=== PATIENT | female | born 1985 | race Caucasian/White ===

== ENCOUNTER 2017-01-24 12:14 | Emergency (ER) | payer OTHER | END 2017-01-24 15:04 | disposition home or self-care (01) | LOC: FER 12:14 | DX: M25.532 Pain in left wrist (principal); G89.29 Other chronic pain; F43.10 Post-traumatic stress disorder, unspecified; F17.210 Nicotine dependence, cigarettes, uncomplicated; Z88.8 Allergy status to other drugs, medicaments and biological substances; I51.9 Heart disease, unspecified; W19.XXXA Unspecified fall, initial encounter | CPT/HCPCS: 73110; 99283 ==

== ENCOUNTER 2022-05-22 16:33 | Day surgery (SDCO) | payer OTHER ==
[~2022-05-22] VITALS: Ht 167.6 cm; Wt 118.6 kg
[2022-05-22 17:23] LABS: BASOPHIL 0.3 % (0-2); EOSINOPHIL 0.6 % (0-5); HCT 32.3 % (37.0-47.0); HGB 10.8 g/dl (12.5-16.0); LYMPHOCYTE 46.2 % (15-48); MCH 25.4 pg (25.0-31.0); MCHC 33.4 g/dL (32.0-36.0); MONOCYTE 6.3 % (0-12); MPV 8.8 fL (6.0-9.5); NEUTROPHIL 46.3 % (41-80); NRBC 0; PLT 311 K/uL (150-400); RBC 4.25 M/uL (4.20-5.40); RDW 16.4 % (11.5-14.0); WBC 6.3 K/uL (4.0-10.5)
[2022-05-22 17:41] LABS: ALBUMIN 3.5 g/dL (3.4-5.0); BILIRUBIN - TOTAL 0.1 mg/dL (0.2-1.0); BUN/CREAT RATIO (CALC) 9.3 RATIO; CREATININE 0.54 mg/dL (0.51-0.95); GLOBULIN (CALCULATION) 3.5 g/dL; POTASSIUM 3.1 mmol/L (3.5-5.1)
[2022-05-22 17:54] LABS: BILIRUBIN NEGATIVE (NEGATIVE); BLOOD 2+ Ery/uL (NEGATIVE); CLARITY CLEAR (CLEAR); COLOR YELLOW (YELLOW); GLUCOSE (U) NORMAL (NORMAL); LEUKOCYTES NEGATIVE Leu/uL (NEGATIVE); NITRITE NEGATIVE (NEGATIVE); PROTEIN NEGATIVE (NEGATIVE); SPECIFIC GRAVITY 1.025 (1.001-1.030); UROBILINOGEN 0.2 mg/dL (0.2-1.0)
[2022-05-22 18:13] LABS: BACTERIA 1+
[2022-05-22 18:55] LABS: ECSTASY (MDMA) NEGATIVE (NEGATIVE); MARIJUANA (THC) NEGATIVE (NEGATIVE); METHADONE NEGATIVE (NEGATIVE); OPIATES NEGATIVE (NEGATIVE); OXYCODONE POSITIVE (NEGATIVE)
[2022-05-22 18:56] LABS: AMPHETAMINES NEGATIVE (NEGATIVE); BARBITURATES NEGATIVE (NEGATIVE)
[2022-05-22 19:41] LABS: BUN/CREAT RATIO (CALC) 9.4 RATIO; CREATININE 0.53 mg/dL (0.51-0.95); POTASSIUM 3.2 mmol/L (3.5-5.1)
[2022-05-22] MEDS ORDERED: MOBIC7.5 MG PO (20:06)
[2022-05-22] MEDS ORDERED: VITAMIN D325 MC1 PO (20:07)
[2022-05-22] MEDS ORDERED: B12 ACTIVE1000 MCG PO (20:12)
[2022-05-22] MEDS ORDERED: HCTZ12.5 MG PO (20:13)
[2022-05-22] MEDS ORDERED: TRILEPTAL150 MG PO (20:13)
[2022-05-22] MEDS ORDERED: ZYPREXA 5MG TABL5 MG PO (20:14)
[2022-05-22] MEDS ORDERED: ZANAFLEX2 MG PO (20:14)
[2022-05-22] MEDS ORDERED: PRISTIQ ER50 MG PO (20:15)
[2022-05-22] MEDS ORDERED: SEROQUEL 25MG T25 MG PO (20:15)
[2022-05-22] MEDS ORDERED: FLOMAX0.4 MG PO (20:16)
[2022-05-22] MEDS ORDERED: SUBOXONE 8 MG-1 EACH PO (20:32)
[2022-05-22] MEDS ORDERED: NEURONTIN300 MG PO (20:44)
[2022-05-22 23:30] LABS: BUN/CREAT RATIO (CALC) 10.4 RATIO; CREATININE 0.48 mg/dL (0.51-0.95); POTASSIUM 4.1 mmol/L (3.5-5.1)
[2022-05-23 06:33] LABS: ALBUMIN 2.9 g/dL (3.4-5.0); BILIRUBIN - TOTAL 0.1 mg/dL (0.2-1.0); BUN/CREAT RATIO (CALC) 12.8 RATIO; CREATININE 0.47 mg/dL (0.51-0.95); FT4 (FREE T4) 0.7 ng/dL (0.76-1.46); GLOBULIN (CALCULATION) 3.1 g/dL; PHOSPHORUS 4.1 mg/dL (2.6-4.7); POTASSIUM 4.2 mmol/L (3.5-5.1)
[2022-05-23 06:38] LABS: BASOPHIL 0.7 % (0-2); EOSINOPHIL 0.7 % (0-5); HCT 30.2 % (37.0-47.0); HGB 9.9 g/dl (12.5-16.0); LYMPHOCYTE 56.7 % (15-48); MCH 25.3 pg (25.0-31.0); MCHC 32.8 g/dL (32.0-36.0); MONOCYTE 8.8 % (0-12); MPV 9.6 fL (6.0-9.5); NEUTROPHIL 32.8 % (41-80); NRBC 0; PLT 301 K/uL (150-400); RBC 3.92 M/uL (4.20-5.40); RDW 16.7 % (11.5-14.0); WBC 5.8 K/uL (4.0-10.5)
[2022-05-23 12:31] LABS: BUN/CREAT RATIO (CALC) 8.6 RATIO; CREATININE 0.58 mg/dL (0.51-0.95); POTASSIUM 4.6 mmol/L (3.5-5.1)
--- NOTE | 2022-05-23 15:10 | NUR ---
05/23/22 Ms. Arrington shares a home with her BF, daughter, and a friend. She is independent in the home and community. They are supported by [employer] and the 's income from employment. Ms. Arrington is applying for SSD due to PTSD. She reports to have attempted suicide at the ages of 17 and 27. She denies current suicidal ideations or intentions. - Ms. Rosales is enrolled in a [employer] program in [place] due opiate misuse. She also is followed at [facility]. - was not interested in NA meetings. She accepted a crisis hotline #.
[2022-05-23 18:22] LABS: BUN/CREAT RATIO (CALC) 7.1 RATIO; CREATININE 0.56 mg/dL (0.51-0.95); POTASSIUM 4.2 mmol/L (3.5-5.1)
[2022-05-24 00:57] LABS: BUN/CREAT RATIO (CALC) 5.7 RATIO; CREATININE 0.53 mg/dL (0.51-0.95); POTASSIUM 4.2 mmol/L (3.5-5.1)
[2022-05-24 06:52] LABS: BASOPHIL 0.5 % (0-2); EOSINOPHIL 1.3 % (0-5); HCT 29.9 % (37.0-47.0); HGB 9.8 g/dl (12.5-16.0); MCHC 32.8 g/dL (32.0-36.0); MCV 79.3 fL (78.0-100.0); MPV 9.6 fL (6.0-9.5); NRBC 0; PLT 290 K/uL (150-400); RBC 3.77 M/uL (4.20-5.40); RDW 17.2 % (11.5-14.0); WBC 6.1 K/uL (4.0-10.5)
[2022-05-24 07:12] LABS: CREATININE 0.5 mg/dL (0.51-0.95); POTASSIUM 4.4 mmol/L (3.5-5.1)
[2022-05-25] MEDS ORDERED: PROZAC20 MG PO (11:48)
[2022-05-25] MEDS ORDERED: TRILEPTAL150 MG PO (11:48)
[2022-05-25] MEDS ORDERED: ATARAX25 MG PO (11:49)
[2022-05-25] MEDS ORDERED: SEROQUEL 25MG T25 MG PO (11:49)
[2022-05-25] MEDS ORDERED: ZYPREXA 5MG TABL5 MG PO (11:50)
[2022-05-25] MEDS ORDERED: SUBOXONE 8 MG-1 EACH PO (11:52)
[2022-05-25] MEDS ORDERED: NEURONTIN400 MG PO (11:53)
[2022-05-26] MEDS ORDERED: AMOX TR-K CLV1 EAC4 PO (15:48)
[2022-05-26] MEDS ORDERED: ONDANSETRON ODT4 MG PO (15:48)
== END 2022-05-24 08:53 | disposition home or self-care (01) ==
LOC: FER 16:33 → FMS 18:02
PROVIDERS: Emergency Medicine; Nurse Practitioner; ADMIT Internal Medicine
DX: E87.1 Hypo-osmolality and hyponatremia (principal); F32.A Depression, unspecified; F41.9 Anxiety disorder, unspecified; F43.10 Post-traumatic stress disorder, unspecified; R00.0 Tachycardia, unspecified; E03.9 Hypothyroidism, unspecified; F17.210 Nicotine dependence, cigarettes, uncomplicated; Z20.822 Contact with and (suspected) exposure to COVID-19; Z88.8 Allergy status to other drugs, medicaments and biological substances; Z79.899 Other long term (current) drug therapy
CPT/HCPCS: 36415; 80048; 80053; 80305; 81001; 83735; 84100; 84300; 84439; 84443; 85025; 87088; 94010; G0378; J1650; J2550; J7030; U0002

== ENCOUNTER → 2022-08-09 | Day surgery (SDC) | payer OTHER ==
[~2022-08-09] VITALS: Ht 167.6 cm; Wt 127.1 kg
[~2022-08-09] MED LIST: AMOX TR-K CLV1 EAC4 PO; ATARAX25 MG PO; B12 ACTIVE1000 MCG PO; CLARITIN10 MG PO; FLOMAX0.4 MG PO; HCTZ12.5 MG PO; MELOXICAM15 MG PO; MOBIC7.5 MG PO; MONTELUKAST SOD10 MG PO; NEURONTIN300 MG PO; NEURONTIN400 MG PO; ONDANSETRON ODT4 MG PO; PAXIL PO; PRISTIQ ER50 MG PO; PROZAC20 MG PO; SEROQUEL 25MG T25 MG PO; SUBOXONE 8 MG-1 EACH PO; TAMSULOSIN HCL0.4 MG PO; TRILEPTAL150 MG PO; VITAMIN B-121000 MCG PO; VITAMIN D325 MC1 PO; ZANAFLEX2 MG PO; ZYPREXA 5MG TABL5 MG PO
== END | disposition home or self-care (01) ==
LOC: FAS 06:18
DX: K92.1 Melena (principal); D64.9 Anemia, unspecified; K59.00 Constipation, unspecified; K31.9 Disease of stomach and duodenum, unspecified; K29.60 Other gastritis without bleeding; K20.90 Esophagitis, unspecified without bleeding; M19.90 Unspecified osteoarthritis, unspecified site; J44.9 Chronic obstructive pulmonary disease, unspecified; E66.9 Obesity, unspecified; Z83.79 Family history of other diseases of the digestive system; Z88.5 Allergy status to narcotic agent; Z88.8 Allergy status to other drugs, medicaments and biological substances; Z91.040 Latex allergy status; Z72.0 Tobacco use; Z68.41 Body mass index [BMI] 40.0-44.9, adult
CPT/HCPCS: J2250; J2704; J7120